=== PATIENT | male | born 1955 | race Caucasian/White ===

== ENCOUNTER → 2017-05-03 | Outpatient (CLI) | payer OTHER | LOC: MRI 12:29 | DX: M94.261 Chondromalacia, right knee (principal); M25.461 Effusion, right knee ==

== ENCOUNTER → 2018-02-25 | Outpatient (CLI) | payer OTHER | LOC: MRI 09:23 | DX: M48.03 Spinal stenosis, cervicothoracic region (principal); M54.2 Cervicalgia; G03.8 Meningitis due to other specified causes ==

== ENCOUNTER → 2018-06-18 | Outpatient (CLI) | payer OTHER | LOC: RAD 08:43 | DX: J98.4 Other disorders of lung (principal) ==

== ENCOUNTER → 2020-08-02 | Outpatient (CLI) | payer OTHER | LOC: RAD 08:15 | PROVIDERS: ATTEND Internal Medicine | DX: R06.02 Shortness of breath (principal) ==